=== PATIENT | male | born 1980 | race Caucasian/White ===

== ENCOUNTER → 2021-04-02 | Outpatient (CLI) | payer OTHER ==
[~2021-04-02] MED LIST: ISOVUE-300 61% 50ML VIAL As Ordered ONE; PROHANCE 279.3MG/ML 5ML VIAL As Ordered ONE
--- NOTE | 2021-04-02 10:20 | REP ---
INDICATION: PAIN IN LT SHOULDER. 40-year-old chronic left shoulder pain x4 years. No known injury. COMPARISON: None. TECHNIQUE: The injection procedure is performed and dictated separately. Pre and post intra-articular gadolinium enhanced saline injected imaging is acquired. Imaging planes include axial, oblique coronal, oblique sagittal and ABER projection images. T1 and T2-weighted scans are included with and without fat saturation. FINDINGS: Pre-injection MR imaging demonstrates a small sliver of subacromial subdeltoid bursal fluid. Glenohumeral and acromioclavicular joints are normally aligned. Cortical and medullary bone signal intensity are normal. Pre-injection imaging shows swelling and increased signal intensity in the distal supraspinatus tendon on oblique coronal T1 weighted scans. No full-thickness cuff tear is seen on pre-injection imaging. Post injection images demonstrate good filling and enhancement of the left glenohumeral articulation. No loose body is seen. Infraspinatus, subscapularis, and biceps tendons have an intact appearance. No anterior or posterior labral disruption is seen. The superior labrum appears intact. ABER images show no evidence of anterior labral tear. T1 weighted fat sat post injected images show no evidence of rotator cuff tear. IMPRESSION: Tendinitis tendinosis change in the distal supraspinatus tendon. Otherwise negative. <Electronically signed by Jono Kimble > 04/02/21 [id number]
--- NOTE | 2021-04-02 19:33 | REP ---
INDICATION: PAIN IN LT SHOULDER COMPARISON: None. TECHNIQUE: The procedure was performed under the direct supervision of Dr. Kimble. The benefits and risks including but not limited to pain, infection, bleeding and anaphylaxis were explained to the patient and informed consent was obtained. The left glenohumeral joint space was localized using fluoroscopic guidance. The skin was prepped and draped in a sterile fashion. 1% lidocaine was used as a local anesthetic. Using fluoroscopic guidance a 22 gauge spinal needle was inserted and advanced into the joint. 0.5 ml of Isovue-300 was injected to verify placement. 11 ml of a solution containing 20 ml of sterile saline and 0.15 ml of ProHance was injected into the joint. The needle was removed and the patient was taken to MRI for postprocedural imaging. The patient tolerated the procedure well and there were no immediate complications. Less than 6 seconds of fluoro time was utilized for this procedure. FINDINGS: None IMPRESSION: Fluoro guidance for left shoulder MRI arthrogram injection. <Electronically signed by Juan Alberto Calvo > 04/02/21 1614 <Electronically signed by Jono Kimble > 04/02/21 [id number]
== END ==
LOC: M RADPRO 07:05
PROVIDERS: ATTEND Physician Assistant
DX: M75.22 Bicipital tendinitis, left shoulder (principal)
CPT/HCPCS: 23350; 73223; 77002; A9576; Q9967

== ENCOUNTER → 2021-05-19 | Outpatient (REF) ==
--- NOTE | 2021-05-20 04:58 | REP ---
INDICATION: DDD/ARTHRITIS/PAIN COMPARISON: None. TECHNIQUE: AP, lateral, bilateral oblique views. FINDINGS: No acute fracture or dislocation. Skeletal structures and joint spaces are intact and normal. Ankle mortise appears stable. No subcutaneous emphysema or radiodense foreign body. The osseous structures and joint spaces are essentially age-appropriate and without evidence for arthritic degenerative change. IMPRESSION: Normal age-appropriate right ankle radiograph series. <Electronically signed by Raza Hernandez > 05/20/21 [id number]
--- NOTE | 2021-05-20 05:01 | REP ---
INDICATION: DDD/ARTHRITIS/PAIN COMPARISON: None. TECHNIQUE: AP, lateral, coned-down views of the lumbar spine. FINDINGS: Three views of the lumbosacral spine demonstrate satisfactory alignment and lordosis. Moderate multilevel degenerative changes include endplate sclerosis with marginal osteophyte formation, minimal disc space narrowing and facet hypertrophy primarily involving L5-S1 and L2-3. There also appears to be subtle loss of height along the superior margin of L3 suspicious for old compression injury. IMPRESSION: 1. No acute fracture / compression injury or subluxation. 2. Moderate multilevel degenerative changes along with findings to suggest very subtle old compression injury at L3. <Electronically signed by Raza Hernandez > 05/20/21 1759
--- NOTE | 2021-05-20 05:24 | REP ---
INDICATION: DDD/ARTHRITIS/PAIN. COMPARISON: None. TECHNIQUE: Water's, PA, bilateral, oblique orbital and SMV views FINDINGS: Evidence for prior orthopedic fixation for right orbital floor fracture. Osseous structures are otherwise intact and normal. No obvious mucosal thickening. Sinuses are clear. No fluid level. No significant foreign body. IMPRESSION: Old right orbital floor fracture. <Electronically signed by Raza Hernandez > 05/20/21 0590
== END ==
LOC: M PLAIMG 11:55
PROVIDERS: ATTEND Internal Medicine
DX: M19.90 Unspecified osteoarthritis, unspecified site (principal)